=== PATIENT | female | born 1950 | race Caucasian/White ===

== ENCOUNTER 2017-01-27 10:33 | Emergency (ER) | payer MEDICARE, BC ==
[~2017-01-27 10:33] MED LIST: AMANTADINE100 MG PO; AZILECT1 M1 PO; AZILECT1 MG PO; IBUPROFEN800 M1 PO; LEVOXYL112 MCG PO; LEXAPRO20 M1 PO; LEXAPRO20 M2 PO; NAPROSYN500 M1 PO; STALEVO PO; SYMMETREL100 MG PO; SYNTHROID112 MC1 PO; TRAMADOL HCL50 M2 PO; [UNRECOGNIZED DRUG - OTHER] PO
[2017-01-27] MEDS ORDERED: CYCLOBENZAPRINE5 M1 PO (10:37)
[2017-01-27] MEDS ORDERED: CARBIDOPA-LEVO E1 EA PO (11:40)
[2017-01-27] MEDS ORDERED: ALEVE220 M4 PO (11:54)
[2017-01-27] MEDS ORDERED: VITAMIN B-121000 MC1 PO (11:55)
[2017-01-27] MEDS ORDERED: CALCIUM CARBON600 M2 PO (11:55)
[2017-01-27] MEDS ORDERED: VITAMIN D1000 UNI3 PO (11:55)
[2017-01-27 12:21] LABS: ANION GAP 13 mmol/L (0-20); BLOOD UREA NITROGEN 17 mg/dl (6-24); CALCIUM 8.7 mg/dl (8.5-10.5); CARBON DIOXIDE-VENOUS 32 mmol/L (22-32); CHLORIDE 104 mmol/l (96-110); CREATININE 0.88 mg/dl (0.50-1.10); GLUCOSE 104 mg/dL (70-110); SODIUM 145 mmol/L (135-145); eGFR VALUE FOR BLACK 79 mL/Min
[2017-01-27 12:23] LABS: POTASSIUM 4.3 mmol/L (3.7-5.1)
[2017-01-27] MEDS ORDERED: NORCO 5-325 TA1 EACH PO (12:53)
[2017-03-05] MEDS ORDERED: STALEVO PO (00:55)
[2017-03-05] MEDS ORDERED: SINEMET 25-1001 EAC1 PO (00:56)
[2017-03-05] MEDS ORDERED: SYNTHROID112 MC1 PO (02:35)
[2017-03-06] MEDS ORDERED: NORCO 5-325 TA1 EACH PO (16:00)
[2017-03-06] MEDS ORDERED: MIRALAX17 G2 PO (16:00)
[2017-03-06] MEDS ORDERED: CYCLOBENZAPRINE5 M1 PO (16:01)
[2017-03-17] MEDS ORDERED: NORCO 5-325 TA1 EACH PO (22:14)
== END 2017-01-27 13:25 ==
LOC: EDMED 10:33
PROVIDERS: Emergency Medicine
DX: M54.16 Radiculopathy, lumbar region (principal); G20 Parkinson's disease; Z88.0 Allergy status to penicillin; Z88.1 Allergy status to other antibiotic agents; Z98.890 Other specified postprocedural states; Z79.899 Other long term (current) drug therapy
CPT/HCPCS: J1170; J1885; J7030

== ENCOUNTER 2017-02-17 00:20 | Emergency (ER) | payer MEDICARE, BC ==
[~2017-02-17 00:20] MED LIST changes: +ALEVE220 M4 PO; +CALCIUM CARBON600 M2 PO; +CARBIDOPA-LEVO E1 EA PO; +CYCLOBENZAPRINE5 M1 PO; +NORCO 5-325 TA1 EACH PO; +VITAMIN B-121000 MC1 PO; +VITAMIN D1000 UNI3 PO
[2017-02-17] MEDS ORDERED: NORCO 5/3251 TAB PO (03:52)
[2017-03-05] MEDS ORDERED: STALEVO PO (00:55)
[2017-03-05] MEDS ORDERED: SINEMET 25-1001 EAC1 PO (00:56)
[2017-03-05] MEDS ORDERED: SYNTHROID112 MC1 PO (02:35)
[2017-03-06] MEDS ORDERED: NORCO 5-325 TA1 EACH PO (16:00)
[2017-03-06] MEDS ORDERED: MIRALAX17 G2 PO (16:00)
[2017-03-06] MEDS ORDERED: CYCLOBENZAPRINE5 M1 PO (16:01)
[2017-03-17] MEDS ORDERED: NORCO 5-325 TA1 EACH PO (22:14)
== END 2017-02-17 04:05 ==
LOC: EDMED 00:20
DX: M54.5 Low back pain (principal); G89.29 Other chronic pain; E03.9 Hypothyroidism, unspecified; Z87.39 Personal history of other diseases of the musculoskeletal system and connective tissue; Z79.890 Hormone replacement therapy
CPT/HCPCS: J1170; J1885